=== PATIENT | male | born 1960 | race African-American/Black ===

== ENCOUNTER 2016-09-05 15:19 | Emergency (ER) ==
[2016-09-05 15:27] VITALS: BP 142/73
[2016-09-05] MEDS ORDERED: XYLOCAINE-MPF 1% 10 ML ONE (15:49)
[2016-09-05] MEDS ORDERED: BOOSTRIX VACCINE IM ONE (16:17)
[2016-09-05] MEDS ORDERED: NORCO-7.5 PO ONE (16:17)
[2016-09-05] MEDS ORDERED: XYLOCAINE-MPF 1% INJ ONE (16:17)
[2016-09-05] MEDS ORDERED: ZOFRAN ODT PO ONE (16:17)
--- NOTE | 2016-09-05 16:23 | PROVIDER DOCUMENTATION ---
HPI-Rash/Wound/ReCheck - General Chief Complaint: Extremity Injury Stated Complaint: LACERATION{S} Time Seen by Provider: 09/05/16 15:45 Source: patient Allergies/Adverse Reactions: Allergies Allergy/AdvReac Type Severity Reaction Status Date / Time No Known Allergies Allergy Verified 08/20/13 08:42 Home Medications: Home Medication List Medication Instructions Recorded Confirmed Last Taken Type Hctz 15 mg PO DAILY 08/20/13 08/20/13 08/19/13 History Levofloxacin 500 mg PO DAILY #7 tablet 08/20/13 Unknown Rx Sulfamethoxazole/Trimethoprim 1 each PO BID #10 tablet 09/05/16 Unknown Rx [Bactrim Ds Tablet] Tramadol [Ultram] 50 mg PO Q8HR #10 tablet 09/05/16 Unknown Rx - History of Present Illness-Dermatology Nature of Presenting Problem: 55 y/o WM c/o lac to L hand, index and ring finger x 1 hour. Pt states he accidentally caught them in an electric sole trimmer. Unsure of last tetanus. Denies any numbness/tingling or LROM. Review of Systems - Adult - REVIEW OF SYSTEMS - ADULT Constitutional: reports: no symptoms reported. denies: chills, fever Eyes: reports: no symptoms reported. denies: blurred vision, double vision Ears, Nose, Mouth & Throat: reports: no symptoms reported. denies: ear pain, nose pain Cardiovascular: reports: no symptoms reported. denies: chest pain, palpitations Respiratory: reports: no symptoms reported. denies: dyspnea on exertion, shortness of breath Gastrointestinal: reports: no symptoms reported. denies: abdominal pain, nausea , vomiting Genitourinary: reports: no symptoms reported. denies: dysuria, frequency Musculoskeletal: reports: no symptoms reported. denies: joint pain, joint swelling Integumentary: reports: see HPI, other. denies: nail changes, rash Neurological: reports: no symptoms reported. denies: numbness, paresthesia Psychiatric: reports: no symptoms reported Endocrine: reports: no symptoms reported. denies: cold intolerance, heat intolerance Hematologic/Lymphatic: reports: no symptoms reported. denies: easy bruising, prolonged bleeding Allergic/Immunologic: reports: no symptoms reported All Other Systems: Reviewed and Negative Past History - Adult - PAST MEDICAL HISTORY-ADULT Review of Records: reports: Nursing Assessment Review, Medications Reviewed Cardiovascular: reports: denies history Respiratory: reports: denies history Gastrointestinal: reports: denies history Genitourinary: reports: denies history Neurological: reports: denies history Endocrine/Immune: reports: denies history - FAMILY HISTORY Family History: reviewed, not pertinent - SOCIAL HISTORY Smoking: denies Living Situation: family Physical Exam-General - PHYSICAL EXAM-ADULT Initial Vital Signs Reviewed: Yes - CONSTITUTIONAL General Appearance: alert, mild distress - EYES Eyes: pink conjunctivae - HEAD, EARS, NOSE, MOUTH & THROAT HENMT: normocephalic/atraumatic - NECK Neck: normal inspection - RESPIRATORY Respiratory: no respiratory distress - CARDIOVASCULAR Cardiovascular: normal peripheral pulses, regular rate, rhythm - MUSCULOSKELETAL Back Exam: normal inspection Extremity: normal range of motion, normal gait, normal capillary refill. negative: abnormal NV exam, pulse deficit - SKIN Integumentary: normal color, normal turgor, warm/dry, laceration(s) (1 cm to distal tip of index finger, L hand; 1.5 cm to L hand, distal tip of ring finger) - NEUROLOGIC Neurologic: negative: sensory deficit - PSYCHIATRIC Psych/Mental Status: normal mood/affect, normal thought content, normal thought process, oriented x 3 Progress - PLAN OF CARE/RESULTS Progress/Plan/Lab Results: Orders Category Date Time Status Diph,Pertuss(Acell),Tet Vac/Pf [Boostrix Vaccine] Med 09/05/16 16:17 Discontinued 0.5 ml IM .ONCE ONE Hydrocodone/APAP 7.5 mg/325 mg [[place]ett-7.5] Med 09/05/16 16:17 Discontinued 1 each PO NOW ONE Lidocaine 1% Pf [Xylocaine-Mpf 1%] Med 09/05/16 16:17 Discontinued 5 ml INJ NOW ONE Lidocaine 1% Pf [Xylocaine-Mpf 1%] 5 ml Med 09/05/16 15:49 Discontinued .ROUTE As Directed Mupirocin Ointment [Bactroban Ointment] Med 09/05/16 16:57 Discontinued 22 gm .ROUTE .STK-MED ONE Ondansetron Odt [Zofran Odt] Med 09/05/16 16:17 Discontinued 4 mg PO NOW ONE Vital Signs Temp Pulse Resp BP Pulse Ox 09/05/16 17:36 52 L 18 09/05/16 15:26 97.6 F 48 L 16 142/73 98 No Known Allergies Allergy (Verified 08/20/13 08:42) Hctz 15 mg PO DAILY 08/20/13 Levofloxacin 500 mg PO DAILY #7 tablet 08/20/13 Sulfamethoxazole/Trimethoprim [Bactrim Ds Tablet] 1 each PO BID #10 tablet 09/05 Tramadol [Ultram] 50 mg PO Q8HR #10 tablet 09/05/16 LACERATION W/O FB OF L IDX FNGR W/O DAMAGE TO NAIL, INIT (09/05/16) LACERATION W/O FB OF L RNG FNGR W/O DAMAGE TO NAIL, INIT (09/05/16) LACERATION W/O FB OF UNSP FINGER W/O DAMAGE TO NAIL, INIT (09/05/16) CNTCT W POWERED GARDEN AND OUTDOOR HAND TOOLS AND MACH, INIT (09/05/16) ENCOUNTER FOR IMMUNIZATION (09/05/16) 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) DRUG THERAPY (09/05/16) Procedures - LACERATION/WOUND REPAIR/FB Left Finger Wound Location: Other: index, ring Wound Length: 1 cm, 1.5 cm Wound's Depth, Shape: linear, irregular Irrigated with Saline?: Yes Prepped with: Betadine, Kit Utilized, Sterile Drapes Applied Anesthetic: Lidocaine/Xylocaine Volume of Anesthetic (ml's): 10 (MC block, index and ring) Wound Debrided: minimal Wound Repaired with: Sutures Suture Size/Type: 4.0, Non-Absorbable, Nylon Number of Sutures: 8 Layer Closure?: No Sterile Dressing Applied?: Yes Splint Applied?: No Sling Applied?: No Post Procedure Neurovascular Exam: Intact Procedure Comment: Pt tolerated well Departure - Departure Time of Disposition Order: 16:21 DIAGNOSIS: Laceration Disposition: HOME 01 Certified Medical Emergency: Emergent Condition: Stable Additional Instructions: Take medications as directed. Return in 10-14 days for suture removal. RICE and tylenol or motrin for pain. ED Follow Up Instructions: You have been treated by a care provider in the Emergency Department. These instructions are being provided to you so you can have an understanding of how to care for yourself upon discharge. Upon discharge from the Emergency Department, you are responsible for making arrangements for follow-up care by a physician of your choice. Take all prescribed medications as directed. Return to the Emergency Department immediately for any new or worsening symptoms. You may call the Physician Referral phone number at [phone] to obtain a list of Physicians who are taking new patients. Prescriptions: Sulfamethoxazole/Trimethoprim [Bactrim Ds Tablet] 1 each PO BID #10 tablet Tramadol [Ultram] 50 mg PO Q8HR #10 tablet Referrals: None,PCP [Primary Care Provider] - Chantal Serrato MD [STAFF PHYSICIAN] - Instructions: Tramadol tablets, Laceration Care, Adult, [id number], Sulfamethoxazole; Trimethoprim, SMX-TMP tablets Attestation - Physician/ LARA Attestation Patient care was provided by Advanced Practice Provider:: Yes Advanced Practice Provider:: Siomara Montero Advanced Practice Provider documentation review:: The Mid-level provider documentation, treatment plan and medical decision making was reviewed by the physician who agrees with all treatment and medical decision making by the MLP.
[2016-09-05] MEDS ORDERED: BACTROBAN OINTMENT ONE (16:57)
== END 2016-09-05 17:36 | disposition home or self-care (01) ==
LOC: P.ED 15:19
DX: S61.211A Laceration without foreign body of left index finger without damage to nail, initial encounter (principal); S61.215A Laceration without foreign body of left ring finger without damage to nail, initial encounter; W29.3XXA Contact with powered garden and outdoor hand tools and machinery, initial encounter; Z23 Encounter for immunization; Z79.899 Other long term (current) drug therapy
CPT/HCPCS: 90471; 90715

== ENCOUNTER 2016-09-15 14:53 | Emergency (ER) ==
[2016-09-15 15:07] VITALS: BP 123/54
--- NOTE | 2016-09-15 15:50 | PROVIDER DOCUMENTATION ---
HPI-Rash/Wound/ReCheck - General Chief Complaint: Suture/Staple Removal Stated Complaint: SUTURE REMOVAL Time Seen by Provider: 09/15/16 15:43 Source: patient Allergies/Adverse Reactions: Allergies Allergy/AdvReac Type Severity Reaction Status Date / Time No Known Allergies Allergy Verified 08/20/13 08:42 Home Medications: Home Medication List Medication Instructions Recorded Confirmed Last Taken Type No Home Medications 09/15/16 09/15/16 Unknown History - History of Present Illness-Dermatology Nature of Presenting Problem: Pt is 55 y/o M presents to the ED with suture removal. Pt states sutures were placed ten days ago. Pt denies pain. Location: reports: hands (L) Quality: reports: none Onset/Duration: reports: other (10 days) Timing: reports: gone now Context/Associated Symptoms: reports: other (suture removal) Identifiable cause?: Yes Similar Symptoms Previously?: Yes Recently seen or treated by another doctor?: Yes - Recheck Treated days ago.: 10 Previous Treatment: laceration repair Antibiotics given: none Symptoms since procedure:: reports: no complaints Review of Systems - Adult - REVIEW OF SYSTEMS - ADULT Constitutional: reports: no symptoms reported Eyes: reports: no symptoms reported Ears, Nose, Mouth & Throat: reports: no symptoms reported Cardiovascular: reports: irregular heart rate (dannie). denies: chest pain, heart murmur Respiratory: reports: no symptoms reported Gastrointestinal: reports: no symptoms reported Genitourinary: reports: no symptoms reported Musculoskeletal: reports: no symptoms reported Integumentary: reports: no symptoms reported Neurological: reports: no symptoms reported Psychiatric: reports: no symptoms reported Endocrine: reports: no symptoms reported Hematologic/Lymphatic: reports: no symptoms reported Allergic/Immunologic: reports: no symptoms reported All Other Systems: Reviewed and Negative Past History - Adult - PAST MEDICAL HISTORY-ADULT Review of Records: reports: Nursing Assessment Review, Medications Reviewed, Social history reviewed & non-contributory. Major Childhood Illnesses: reports: denies history Cardiovascular: reports: denies history Respiratory: reports: denies history Gastrointestinal: reports: denies history Obstetrical/Gynecological: reports: denies history Genitourinary: reports: denies history Musculoskeletal: reports: denies history Neurological: reports: denies history Endocrine/Immune: reports: denies history Other Conditions: reports: denies history - PRIOR SURGERIES/PROCEDURES Surgical/Procedure History: reports: appendectomy - IMMUNIZATION STATUS Childhood Immunizations: See Nurse Assessment Flu Vaccine: See Nurse Assessment - FAMILY HISTORY Family History: reviewed, not pertinent - SOCIAL HISTORY Smoking: denies Substance Use: denies Living Situation: family Physical Exam-General - PHYSICAL EXAM-ADULT Initial Vital Signs Reviewed: Yes - CONSTITUTIONAL General Appearance: appears well, alert, no apparent distress - EYES Eyes: PERRL/EOMI, pink conjunctivae, fundi clear, no AV nicking - HEAD, EARS, NOSE, MOUTH & THROAT HENMT: normocephalic/atraumatic, moist mucous membranes, normal ENT inspection, TMs normal, pharynx normal - NECK Neck: non-tender, full range of motion, supple, normal inspection - RESPIRATORY Respiratory: chest non-tender, lungs clear, normal breath sounds, no pleuratic chest pain, no respiratory distress, no accessory muscle use - CARDIOVASCULAR Cardiovascular: normal peripheral pulses, no edema, no gallop, no JVD, no murmur , bradycardia - GASTROINTESTINAL (ABDOMEN) Abdominal Exam: normal bowel sounds, non tender, soft, no organomegaly, no pulsatile mass - LYMPHATIC Lymphatic: no adenopathy - MUSCULOSKELETAL Back Exam: normal inspection, no CVA tenderness, no vertebral tenderness Extremity: normal range of motion, non-tender, normal gait, normal inspection, no pedal edema, no calf tenderness, normal capillary refill - SKIN Integumentary: normal color, normal turgor, warm/dry - NEUROLOGIC Neurologic: grossly normal - PSYCHIATRIC Psych/Mental Status: normal mood/affect, oriented x 3 Progress - PLAN OF CARE/RESULTS Progress/Plan/Lab Results: Vital Signs - 24 hr 09/15/16 15:04 Temperature 98 F Pulse Rate 48 L Respiratory 18 Rate Blood Pressure 123/54 O2 Sat by Pulse 99 Oximetry Departure - Departure Time of Disposition Order: 15:54 DIAGNOSIS: Visit for suture removal Disposition: HOME 01 Certified Medical Emergency: Emergent Condition: Stable Additional Instructions: ED Follow Up Instructions: You have been treated by a care provider in the Emergency Department. These instructions are being provided to you so you can have an understanding of how to care for yourself upon discharge. Upon discharge from the Emergency Department, you are responsible for making arrangements for follow-up care by a physician of your choice. Take all prescribed medications as directed. Return to the Emergency Department immediately for any new or worsening symptoms. You may call the Physician Referral phone number at [phone] to obtain a list of Physicians who are taking new patients. Attestation - Scribe Verification/Attestation Scribe:: Galilea Younger Acting as Scribe for:: Yuri Farias Scribe documention review:: This chart was documented by a scribe and accurately reflects the service the provider performed and the decisions made by the provider.
== END 2016-09-15 16:03 | disposition home or self-care (01) ==
LOC: P.ED 14:53
DX: S61.412D Laceration without foreign body of left hand, subsequent encounter (principal); R00.1 Bradycardia, unspecified
CPT/HCPCS: 99281